=== PATIENT | male | born 1980 | race Caucasian/White ===

== ENCOUNTER 2020-01-21 09:05 | Outpatient (REF) | payer OTHER, SELFPAY ==
--- NOTE | 2020-01-21 09:13 | XR_ITS ---
EXAMINATION: XR THORACIC SPINE XR LUMBAR SPINE CLINICAL INFORMATION: Dorsalgia COMPARISON: CT 12/05/2018 TECHNIQUE: 3 views of the thoracic spine. 5 views of the lumbar spine. FINDINGS: Thoracic spine: No fracture or subluxation. Vertebral body height and alignment is maintained. Disc spaces are maintained. The paravertebral soft tissues are unremarkable. The visualized lungs are clear. Lumbar spine: No fracture or subluxation. Vertebral body heights are maintained. Mild disc space narrowing of L2-L3 with small endplate osteophytes and a small Schmorl's node present. The sacroiliac joints are symmetric. The visualized sacrum is intact. The bowel gas pattern is unremarkable. IMPRESSION: No acute abnormality of the thoracolumbar spine. Minimal spondylosis of L2-L3.
== END 2020-01-21 09:06 | disposition home or self-care (01) ==
LOC: HO.XRAY 09:05
PROVIDERS: PCP Internal Medicine; Visit Provider Internal Medicine
DX: M54.9 Dorsalgia, unspecified (principal)
CPT/HCPCS: 72072; 72110

== ENCOUNTER 2020-04-12 07:49 | Outpatient (REF) | payer OTHER, SELFPAY ==
--- NOTE | 2020-04-12 07:58 | XR_ITS ---
EXAMINATION: XR CERVICAL SPINE CLINICAL INFORMATION: Spondylosis without myelopathy or radiculopathy COMPARISON: None TECHNIQUE: 6 views of the cervical spine, inclusive of flexion and extension views, were obtained. FINDINGS: There is maintained cervical lordosis. The vertebral heights, alignment and disc heights are normal. No acute fracture, dislocation or subluxation seen. The neural foramina are patent bilaterally. The prevertebral soft tissues are normal XR/XR cervical spine min 6V IMPRESSION: Unremarkable cervical spine exam.
== END 2020-04-12 07:50 | disposition home or self-care (01) ==
LOC: HO.XRAY 07:49
PROVIDERS: PCP Internal Medicine
DX: M47.812 Spondylosis without myelopathy or radiculopathy, cervical region (principal)
CPT/HCPCS: 72052

== ENCOUNTER 2020-05-18 04:11 | Emergency (ER) | payer OTHER, SELFPAY ==
--- NOTE | ~2020-05-18 | MR_ITS ---
MR LUMBAR SPINE WITHOUT IV CONTRAST CLINICAL INFORMATION: Severe low back pain and urinary incontinence. COMPARISON: Lumbar spine radiographs 01/21/2020. TECHNIQUE: MRI of the lumbar spine was obtained using routine sequences without contrast. FINDINGS: There are 5 nonrib-bearing lumbar-type vertebral bodies. Lumbar alignment is maintained. Vertebral body heights are preserved. Small chronic inferior endplate Schmorl's noted L2. There is no bone marrow edema. There are no acute fractures. Conus terminates at the T12 level. The partially imaged bladder is distended. T12-L1: Shallow left paracentral disc protrusion mildly indents the ventral thecal sac. No central canal stenosis and no foraminal stenosis. L1-L2: Small annular disc bulge and mild bilateral facet arthropathy. No central canal stenosis and no foraminal stenosis. L2-L3: Small annular disc bulge and mild bilateral facet arthropathy. No central canal stenosis and no foraminal stenosis. L3-L4: Small annular disc bulge and mild bilateral facet arthropathy. No central canal stenosis and no foraminal stenosis. L4-L5: Diffuse annular disc bulge and mild bilateral facet arthropathy. No central canal stenosis. There is mild foraminal encroachment bilaterally. There is a right lateral annular fissure. L5-S1: Diffuse annular disc bulge and mild bilateral facet arthropathy. Epidural lipomatosis moderately effaces the thecal sac. There is mild foraminal encroachment bilaterally. MR/MR lumbar spine wo con IMPRESSION: At L5-S1, epidural lipomatosis moderately effaces the thecal sac. Mild spondylitic changes throughout the lumbar spine and lower thoracic spine. No severe central canal stenosis and no severe foraminal stenosis. Right lateral annular fissure at L4-L5. The partially imaged bladder is distended.
--- NOTE | 2020-05-18 04:15 | ED.BACK ---
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 Tried ibuprofen and baclofen without relief. MD elicited complaint: back pain Pertinent past history: prior back pain Onset (ago): day(s) (2) Timing: constant and progressively worsening Severity: severe Similar Symptoms Previously: Yes Quality: sharp Location: lumbar spine Radiation: abdomen and other (testicles) Exacerbating factors: movement, sitting upright, walking, deep breaths and coughing/sneezing Relieving factors: none Context: unknown Associated symptoms: urinary incontinence Treatments prior to arrival: NSAIDS and other medications Work related injury: No Related Data Allergies Allergy/AdvReac Type Severity Reaction Status Date / Time No Known Allergies Allergy Unverified 12/24/19 16:54 [No Known Allergies*] Review of Systems Review of Systems: Constitutional : No Weight loss, No Fever, No Chills, ENT/Mouth : No Hearing loss, No Ear Pain, No Nasal Congestion, No Sinus Pain, No Hoarseness, No sore throat, No Rhinorrhea, No Swallowing Difficulty Cardiovascular : No Chest Pain, No SOB Respiratory : No Cough, No Dyspnea Gastrointestinal : No Nausea, No Vomiting, No Diarrhea, No abdominal Pain, No Hematochezia, No Melena Genitourinary : No Dysuria, No Urinary Frequency, No Hematuria, pos Urinary Incontinence, Musculoskeletal : positive back pain Skin : No Skin Lesions, No rash Neuro : No Weakness, No Numbness, No Paresthesias, pos loss bladder control , no saddle anesthesia PMFSH Past Medical History Attestation statement: The following information was validated with the patient. Medical History Back pain Social History Social History (Updated 05/18/20 @ 04:20 by Estrella Mayorga DO) Smoking Status: Never smoker Use of substances other than those prescribed or required for medical reasons: No Advance Directives: No Advance Directives Information Provided: No Physical Exam Vital Signs: Vital Signs: Last Vital Signs Temp 98.6 F 05/18/20 04:41 Pulse 108 H 05/18/20 04:41 Resp 15 05/18/20 04:41 BP 136/85 05/18/20 04:41 Pulse Ox 98 05/18/20 04:41 Body Mass Index 38.9 Appearance: Alert. Oriented X3. anxious in pain, mild acute distress, hunched over. Eyes: Pupils equal, round and reactive to light. ENT: Pharynx normal. Neck: Normal inspection. Neck supple. CVS: Normal heart rate and rhythm. Pulses normal. Respiratory: No respiratory distress. Breath sounds normal. Abdomen: Soft and nontender. : normal sensation Rectal: normal tone Back: bilateral lumbar paraspinal ttp - moderate, + spasm, no rash Skin: Skin warm and dry. Normal skin color. Normal skin turgor. Extremities: No lower extremity edema. No calf ttp Neuro: Oriented X 3. No motor deficit. No sensory deficit. L5 5/5 bilaterally, 2+ DTR in bilateral patella and achilles - no clonus Course Course Course Narrative: PVR 77mL signed out pending MRI MDM - Back Pain/Injury MDM Narrative Medical decision making narrative: 39 yo male chronic back pain no AC therapy no IVDA, c/o severe pain that started suddenly on Saturday and has had urinary incontinence, currently he is able to control his bladder - at this time will need IV pain medications, PVR bladder scan, start on steroids and obtain MRI to r/o compressive lesion, dispo per results and findings. Lab Data Result diagrams: 05/18/20 04:30 05/18/20 04:30 Labs: Lab Results 05/18/20 05/18/20 Range/Units 04:30 04:30 WBC 9.1 (4.8-10.8) X10*3/uL RBC 4.35 L (4.60-5.80) X10*6/uL Hgb 13.1 L (14.0-18.0) g/dl Hct 38.5 L (42-52) % MCV 88.5 (80-98) fL MCH 30.1 (27.0-33.0) pg MCHC 34.0 (31.0-36.0) g/dl RDW 13.2 (11.0-16.0) % Plt Count 197 (160-400) X10*3/uL MPV 9.1 L (9.4-12.4) fL Immature Gran % (Auto) 0.2 (0.0-0.4) % Neut % (Auto) 59.2 (45-73) % Lymph % (Auto) 30.8 (20-40) % [place] % (Auto) 7.9 (2-11) % Eos % (Auto) 1.7 (0-4) % Baso % (Auto) 0.2 (0-2) % Lymph # (Auto) 2.8 (1.2-4.9) X10*3/uL [place] # (Auto) 0.7 (0.1-1.2) X10*3/uL Eos # (Auto) 0.2 (0.0-0.4) X10*3/uL Baso # (Auto) 0.0 (0.0-0.2) X10*3/uL Abs Immat Gran (auto) 0.02 (0.00-0.03) X10*3/uL Absolute Neuts (auto) 5.4 (2.0-8.3) X10*3/uL Absolute Nucleated RBC 0.000 (0.0-0.012) X10*3/uL Nucleated RBC % (auto) 0.0 (0.0-0.2) /100WBC Sodium 138 (135-145) mmol/L Potassium 4.2 (3.3-5.1) mmol/L Chloride 105 (96-108) mmol/L Carbon Dioxide 24 (22-29) mmol/L Anion Gap 13 (12-20) BUN 20 H (9-16) mg/dL Creatinine 1.14 (0.5-1.4) mg/dL Estim Creat Clear Calc 120.3 Estimated GFR > 60 Random Glucose 112 (60-115) mg/dL Calcium 8.6 (8.4-10.2) mg/dL Discharge Plan Discharge Clinical Impression: Strain of lumbar region Qualifiers: Encounter type: initial encounter Qualified Code(s): S39.012A - Strain of muscle, fascia and tendon of lower back, initial encounter
[2020-05-18] MEDS: diazePAM 5 MG TABLET PO (04:39)
[2020-05-18] MEDS: HYDROmorphone HCl 1 MG/ML SYRINGE IVPUSH ×2 (04:39→12:11)
[2020-05-18] MEDS: methylPREDNISolone Sod Succ/PF 125 MG/2 ML VIAL 60 MG IVPUSH (04:40)
[2020-05-18 04:41] VITALS: BP 136/85; PULSE 108; RESP 15; TEMP 37; O2SAT 98; BMI 38.9
[2020-05-18 04:46] LABS: MANUAL DIFF FLAG NO
[2020-05-18 04:47] LABS: Basophils Percent Auto 0.2 % (0-2); Eosinophils Absolute Auto 0.2 X10*3/uL (0.0-0.4); Eosinophils Percent Auto 1.7 % (0-4); Hematocrit 38.5 % (42-52); Hemoglobin 13.1 g/dl (14.0-18.0); Imm Gran Abs Auto 0.02 X10*3/uL (0.00-0.03); Imm Gran Pct Auto 0.2 % (0.0-0.4); Lymphocytes Absolute Auto 2.8 X10*3/uL (1.2-4.9); Lymphocytes Percent Auto 30.8 % (20-40); Mean Corpuscular Hemoglobin 30.1 pg (27.0-33.0); Mean Corpuscular Volume 88.5 fL (80-98); Mean Platelet Volume 9.1 fL (9.4-12.4); Monocytes Absolute Auto 0.7 X10*3/uL (0.1-1.2); Monocytes Percent Auto 7.9 % (2-11); Neutrophils Absolute Auto 5.4 X10*3/uL (2.0-8.3); Neutrophils Percent Auto 59.2 % (45-73); Platelet Count 197 X10*3/uL (160-400); Red Blood Count 4.35 X10*6/uL (4.60-5.80); Red Cell Distribution Width 13.2 % (11.0-16.0); White Blood Count 9.1 X10*3/uL (4.8-10.8)
[2020-05-18 05:09] LABS: Anion Gap 13 (12-20); Blood Urea Nitrogen 20 mg/dL (9-16); Calcium 8.6 mg/dL (8.4-10.2); Carbon Dioxide 24 mmol/L (22-29); Chloride 105 mmol/L (96-108); Creatinine Clr Calc Pharmacy 120.3; Estimated Glomerular Filt Rate > 60; Glucose Random 112 mg/dL (60-115); Potassium 4.2 mmol/L (3.3-5.1); Sodium 138 mmol/L (135-145)
[2020-05-18 05:32] LABS: COVID-19 Test Negative (Negative)
[2020-05-18 06:00] VITALS: BP 116/80; PULSE 90; RESP 15; O2SAT 98
[2020-05-18 08:06] VITALS: BP 101/68; PULSE 88; RESP 18; TEMP 36.6; O2SAT 97
--- NOTE | 2020-05-18 08:27 | PC.NURSE ---
Pt off floor to MRI
--- NOTE | 2020-05-18 10:51 | PC.NURSE ---
10:49AM PT TX LINE CALLED @ DR GARCIA REQUEST OXANA ANSWERS, TAKES PT INFO, CALL BACK NUMBER AND ASKS TO SPEAK WITH DR RADHA GARCIA TAKES OVER CALL RIGHT AWAY
--- NOTE | 2020-05-18 11:18 | PC.NURSE ---
11:09AM RETURN CALL FROM OXANA FROM [facility] PT TX LINE ASKS TO SPEAK WITH DR RADHA GARCIA TAKES OVER CALL
--- NOTE | 2020-05-18 11:33 | PC.NURSE ---
11:31AM RETURN CALL FROM [facility] PT PLACEMENT FOR DR RADHA GARCIA TAKES OVER CALL RIGHT AWAY
--- NOTE | 2020-05-18 12:11 | PC.NURSE ---
11:47AM RETURN CALL FROM [facility] PT PLACEMENT WITH ROOM ASSIGNMENT LOZANO ROOM 50A RN TO RN [phone]
--- NOTE | 2020-05-18 12:23 | PC.NURSE ---
12:22PM CALL PLACED TO [facility] PT TX LINE FOR ACCEPTING MD NAME ACCEPTING MD WILL BE: DR ORO
== END 2020-05-18 13:56 | disposition short-term general hospital (02) ==
PROVIDERS: Emergency Medicine; Emergency Provider Emergency Medicine Emergency Medical Services
DX: S39.012A Strain of muscle, fascia and tendon of lower back, initial encounter (principal); X58.XXXA Exposure to other specified factors, initial encounter; M54.16 Radiculopathy, lumbar region; G95.89 Other specified diseases of spinal cord; E88.2 Lipomatosis, not elsewhere classified; Z20.822 Contact with and (suspected) exposure to COVID-19; Y93.9 Activity, unspecified; Y92.9 Unspecified place or not applicable; Y99.9 Unspecified external cause status
CPT/HCPCS: 36415; 72148; 80048; 85025; 87635; 96374; 96375; 96376; 99285; J1170; J2930

== ENCOUNTER → 2022-01-04 15:23 | Outpatient (BNVA) | payer OTHER, SELFPAY | PROVIDERS: PCP Internal Medicine; Visit Provider Surgery | DX: L98.9 Disorder of the skin and subcutaneous tissue, unspecified (principal) | CPT/HCPCS: 99202 ==

== ENCOUNTER → 2022-02-08 14:49 | Outpatient (BNVA) | payer OTHER, SELFPAY | PROVIDERS: PCP Internal Medicine; Visit Provider Nurse Practitioner Family | DX: G47.33 Obstructive sleep apnea (adult) (pediatric) (principal) | CPT/HCPCS: 99202 ==

== ENCOUNTER 2022-02-12 15:11 | Outpatient (REF) | payer OTHER, SELFPAY | END 2022-02-12 15:12 | disposition home or self-care (01) | LOC: HO.LNP 15:11 | PROVIDERS: PCP Internal Medicine; Visit Provider Surgery | DX: L98.9 Disorder of the skin and subcutaneous tissue, unspecified (principal) | CPT/HCPCS: 11401; 88305; 88313 ==

== ENCOUNTER 2022-10-16 14:46 | Outpatient (REF) | payer OTHER, SELFPAY ==
--- NOTE | ~2022-10-16 | XR_ITS ---
Examination: X-ray hand, left INDICATION: Pain, swelling, redness COMPARISON: 02/22/2014 TECHNIQUE: 4 views of the left hand FINDINGS: No fracture or dislocation. Alignment is normal. Joint spaces are fairly well-preserved. No erosions. Soft tissues unremarkable. No foreign bodies. XR/XR wrist LT w scaphoid IMPRESSION: Unremarkable left hand
== END 2022-10-16 14:47 | disposition home or self-care (01) ==
LOC: HO.HHCX 14:46
PROVIDERS: Visit Provider Family Medicine
DX: M25.532 Pain in left wrist (principal); M25.432 Effusion, left wrist
CPT/HCPCS: 73110

== ENCOUNTER 2022-10-16 14:57 | Outpatient (REF) | payer OTHER, SELFPAY ==
[2022-10-16 16:29] LABS: Basophils Percent Auto 0.5 % (0-2); Eosinophils Absolute Auto 0.1 X10*3/uL (0.0-0.4); Eosinophils Percent Auto 1.8 % (0-4); Hematocrit 41.4 % (42.0-52.0); Hemoglobin 14.1 g/dl (14.0-18.0); Imm Gran Abs Auto 0.01 X10*3/uL (0.00-0.03); Imm Gran Pct Auto 0.2 % (0.0-0.4); Lymphocytes Absolute Auto 1.7 X10*3/uL (1.2-4.9); Lymphocytes Percent Auto 25.4 % (20-40); MANUAL DIFF FLAG NO; Mean Corpuscular HGB Conc 34.1 g/dl (31.0-36.0); Mean Corpuscular Hemoglobin 29.6 pg (27.0-33.0); Mean Platelet Volume 9.9 fL (9.4-12.4); Monocytes Absolute Auto 0.7 X10*3/uL (0.1-1.2); Monocytes Percent Auto 10.3 % (2-11); Neutrophils Absolute Auto 4.1 x10*3/uL (2.0-8.3); Neutrophils Percent Auto 61.8 % (45-73); Platelet Count 143 X10*3/uL (160-400); Red Blood Count 4.76 X10*6/uL (4.60-5.80); Red Cell Distribution Width 12.5 % (11.0-16.0); White Blood Count 6.6 X10*3/uL (4.8-10.8)
[2022-10-16 17:26] LABS: Erythrocyte Sedimentation Rate 18 MM/HR (0-15)
[2022-10-16 18:23] LABS: Anion Gap 13 (12-20); Blood Urea Nitrogen 11 mg/dL (9-16); C Reactive Protein 0.69 mg/dL (< or = 0.50); Calcium 9.3 mg/dL (8.4-10.2); Carbon Dioxide 22 mmol/L (22-29); Chloride 105 mmol/L (96-108); Estimated Glomerular Filt Rate > 60; Glucose Random 90 mg/dL (60-115); Potassium 3.7 mmol/L (3.3-5.1); Rheumatoid Factor < 13.0 IU/mL (<15.0); Sodium 136 mmol/L (135-145); Uric Acid 7.2 mg/dL (3.4-7.0)
[2022-10-22 15:48] LABS: Cyclic Citrullinated Peptide <16 UNITS
[2022-10-24 10:44] LABS: Anti Nuclear Antibody Screen NEGATIVE (NEGATIVE)
== END 2022-10-16 14:58 | disposition home or self-care (01) ==
LOC: HO.HHCL 14:57
PROVIDERS: Visit Provider Family Medicine
DX: M25.532 Pain in left wrist (principal); M25.432 Effusion, left wrist; R60.0 Localized edema
CPT/HCPCS: 36415; 80048; 84550; 85025; 85652; 86038; 86140; 86200; 86431

== ENCOUNTER 2022-12-06 07:30 | Outpatient (REF) | payer SELFPAY ==
--- NOTE | 2022-12-06 | EMG_ITS ---
Left median and ulnar motor and sensory studies were performed. Left radial sensory study was performed and left median and lateral antecubital brachial sensory studies were performed. Needle examination was performed. IMPRESSION: Mild left median neuropathy across carpal tunnel. Otherwise, no significant abnormality noted on this study of left upper extremity. MD SONYA Gilbert/KD / [id number]
== END 2022-12-06 07:31 | disposition home or self-care (01) ==
LOC: HO.NEURO 07:30
PROVIDERS: PCP Registered Nurse; Visit Provider Registered Nurse
DX: R20.0 Anesthesia of skin (principal); R20.2 Paresthesia of skin
CPT/HCPCS: 95886; 95910

== ENCOUNTER 2022-12-19 13:37 | Outpatient (AMB) | payer SELFPAY ==
--- NOTE | 2022-12-19 14:12 | A.OFFVIS_ITS ---
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 States he is having cramping, severe swelling in his wrist for the last 10 yrs ago and was diagnose 2 yrs ago with arthritis in all his joint. Seen in [facility] where xrays were taken. States he was told he could have gout or tendonitis. Since then he has not been able to sleep due to increase pain. EMG done for left hand. Hx of back pain. 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 Back in October he had sudden onset of pain and swelling in the dorsum of the left wrist. They thought he might have gout verses extensor tendinitis. This went on to improve and is no longer particularly painful. He also complains of numbness and tingling in the fingers of his left hand. He says it is intermittent and perhaps only 2-3 times per week. It mostly involves the thumb index and middle fingers. He also gets pain that radiates from his neck all the way down his arm. He reports that if he turns his neck towards his left arm that he gets increased pain going down his arm. He said that he is already being seen by someone for his C-spine and his lower back issues. He worked at [employer] but has been out of work for the last 3 months.. [facility] Medical History (Updated 12/19/22 @ 15:24 by Zenaida Stacy MD) Skin lesion of right arm Back pain Family History Mother Advanced dementia Osteoarthritis (arthritis due to wear and tear of joints) Father Diabetes Alzheimer disease Social History Alcohol intake: never Patient Tobacco Use Status: Never used Tobacco Review of Systems Const All systems reviewed & are unremarkable except as noted in HPI and below Physical Exam Vital Signs: BMI result Body Mass Index 38.1 Const General: cooperative, healthy appearing and no acute distress Orientation/consciousness: patient oriented x3 HEENT Head: Yes normocephalic and Yes atraumatic Eyes EOM: EOMs intact bilaterally Resp Effort & Inspection: normal respiratory effort and able to speak in complete sentences Cardio Jugular venous distension: no JVD Skin General skin exam: turgor normal, ecchymosis (No) and erythema (No) Rashes: no rashes Trauma: no lacerations or abrasions Neuro Other: Vascular: Cap refill brisk General: patient oriented x3 Extrem Other: The patient was alert oriented and in no acute distress. Left upper extremity exam: Median ulnar radial nerve motor and sensory were all grossly intact with good sensation to all digits today. No thenar or intrinsic wasting. Good finger cross and good APB muscle belly firing He can make a fist and extend all his digits. No pain when he makes a fist or extend all of his Digits. No locking or catching. Regarding his left wrist, he no longer has any visible swelling or warmth in the left wrist. He actually has very good range of motion with nearly symmetrical prono- supination with only mild discomfort with full pronation or full supination. He does have some discomfort with full wrist flexion and wrist extension. And is lacking about 20 degrees of each compared to the opposite side. I showed him some exercises and encouraged him to work on wrist range of motion. Radiographs three views of the left wrist from 10/16/2022 were reviewed by me today in clinic. They show no fractures or dislocations. I do not see any appreciable arthritic changes. No evidence of ligamentous instability. 12/06/22: EMG/ NCV of left hand. By Dr. Duggan. Result was reviewed by Dr. Zenaida Stacy. IMPRESSION: Mild left median neuropathy across carpal tunnel. Otherwise, no significant abnormality noted on this study of left upper extremity. Psych Appearance: grossly normal Affect: normal affect Attitude: cooperative Assessment & Plan Assessment & Plan (1) Carpal tunnel syndrome of left wrist: Code(s): G56.02 - Carpal tunnel syndrome, left upper limb Plan Assessment and plan: 1. Left carpal tunnel syndrome, mild At present his symptoms are only occurring about 2-3 times per week. I educated him about carpal tunnel syndrome We discussed operative and non operative treatment options. I am not recommending surgery at this time. I did caution him against waiting too long. He knows that when he starts getting symptoms that are just about every day or bothering him and keeping him from sleeping then he should contact us again to be evaluated. 2. Left dorsal wrist swelling and pain that occurred in about October of 2022 At this point this condition appears to have fully resolved. I agree that this could very well have been gout or and extensor tenosynovitis. I educated his him some about these conditions. If he does have gout he would likely need to talk to his primary care provider about managing this with diet and medications. Again this is resolved and there is no intervention indicated. 3. He has some mild stiffness in his left wrist. I showed him some exercises to work on wrist range of motion. It does not sound like he was interested in OT hand therapy right now. If this should change she all ES to do is contact our clinic and I will put in an order. I do not have any indication to keep him out of work at this time. He will follow-up with me p.r.n.. He will follow-up with whomever he is seeing for his C-spine and low back pain issues. Scribed for Dr. Zenaida Stacy by Reji Gabriel, medical billing clerk, on 12/19/2022. I, Dr. Zenaida Stacy, have personally reviewed and agree with the information entered by the scribe. Coding Level of Care Code New Pt Level 3 (02343) Diagnoses Carpal tunnel syndrome of left wrist G56.02
[2022-12-19 14:21] VITALS: BMI 38.1
== END 2022-12-19 15:13 | disposition home or self-care (01) ==
PROVIDERS: PCP Registered Nurse; Visit Provider Orthopaedic Surgery
DX: G56.02 Carpal tunnel syndrome, left upper limb (principal)
CPT/HCPCS: 99203

== ENCOUNTER → 2022-12-19 13:37 | Outpatient (BNVA) | payer OTHER, SELFPAY | PROVIDERS: PCP Registered Nurse; Visit Provider Orthopaedic Surgery ==

== ENCOUNTER 2023-01-29 11:18 | Outpatient (REF) | payer OTHER, SELFPAY ==
--- NOTE | ~2023-01-29 | XR_ITS ---
EXAMINATION: XR SHOULDER, LEFT CLINICAL INFORMATION: Right shoulder pain, chronic, 3 months COMPARISON: 07/24/2017 TECHNIQUE: 5 views of the left shoulder. FINDINGS: Mild degenerative changes with hypertrophic change in the acromioclavicular joint. Glenohumeral alignment preserved. Faint soft tissue calcifications are again demonstrated at the superolateral aspect of the humeral head. XR/XR shoulder LT min 2V IMPRESSION: Faint soft tissue calcifications are again demonstrated at the superolateral aspect of the humeral head.
[2023-01-29 13:29] LABS: Appearance Urine Turbid; Color Urine Dark Yellow; Glucose Urine UA Negative (Negative); Leukocyte Esterase Urine Trace (Negative); Nitrite Urine Negative (Negative); UMIC TRIGGER UACC YES; Urine Blood Small (1+) (Negative); Urine Ketones Negative (Negative); Urine Protein Negative (Neg-Trace)
[2023-01-29 13:48] LABS: Bacteria Urine None Seen (None Seen); Hyaline Casts Urine 0-2 /LPF (0-2); Squamous Epithelial Cell Urine 0-2 /HPF (0-2); WBC Urine 0-5 /HPF (0-5)
[2023-01-29 14:19] LABS: Anion Gap 13 (12-20); Blood Urea Nitrogen 9 mg/dL (9-16); Calcium 9.2 mg/dL (8.4-10.2); Carbon Dioxide 26 mmol/L (22-29); Chloride 104 mmol/L (96-108); Cholesterol 211 mg/dL (<200); Estimated Glomerular Filt Rate > 60; Glucose Random 97 mg/dL (60-115); HDL Cholesterol 39 mg/dL (>40); LDL Cholesterol Calculated 145 mg/dL (<100); Potassium 4.2 mmol/L (3.3-5.1); Sodium 139 mmol/L (135-145); Triglycerides 135 mg/dL (<150)
[2023-01-29 14:21] LABS: Estimated Average Glucose 94 mg/dL; Hemoglobin A1c % 4.9 % (<6.0)
== END 2023-01-29 11:19 | disposition home or self-care (01) ==
LOC: HO.HHCL 11:18
PROVIDERS: Visit Provider Registered Nurse
DX: R80.9 Proteinuria, unspecified (principal); E66.01 Morbid (severe) obesity due to excess calories; Z68.41 Body mass index [BMI] 40.0-44.9, adult; Z13.89 Encounter for screening for other disorder
CPT/HCPCS: 36415; 73030; 80048; 80061; 81001; 83036

== ENCOUNTER 2023-02-12 08:42 | Outpatient (REF) | payer MEDICAID, SELFPAY ==
[2023-02-12 11:27] LABS: Appearance Urine Cloudy; Color Urine Dark Yellow; Glucose Urine UA Negative (Negative); Leukocyte Esterase Urine Small (1+) (Negative); Nitrite Urine Negative (Negative); PH 5.5 (5.0-9.0); Specific Gravity - Urine >= 1.030 (1.005-1.025); UMIC TRIGGER UACC YES; Urine Blood Small (1+) (Negative); Urine Ketones Trace mg/dL (Negative); Urine Protein 30 (1+) mg/dL (Neg-Trace)
[2023-02-12 11:41] LABS: Bacteria Urine None Seen (None Seen); Calcium Oxalate Crystals Urine Present; Granular Casts Urine Present; Squamous Epithelial Cell Urine 0-2 /HPF (0-2); UACC Culture Trigger YES
== END 2023-02-12 08:43 | disposition home or self-care (01) ==
LOC: HO.HHCL 08:42
PROVIDERS: Visit Provider Registered Nurse
DX: R80.9 Proteinuria, unspecified (principal)
CPT/HCPCS: 81001; 87086

== ENCOUNTER 2024-01-08 14:49 | Outpatient (REF) | payer MEDICAID, SELFPAY ==
[2024-01-08 16:17] LABS: Appearance Urine Clear; Color Urine Dark Yellow; Glucose Urine UA Negative (Negative); Leukocyte Esterase Urine Trace (Negative); Nitrite Urine Negative (Negative); PH 6.5 (5.0-9.0); UMIC TRIGGER UACC YES; Urine Blood Small (1+) (Negative); Urine Ketones Negative (Negative); Urine Protein Trace mg/dL (Neg-Trace)
[2024-01-08 16:22] LABS: Bacteria Urine None Seen (None Seen); Hyaline Casts Urine 0-2 /LPF (0-2); Squamous Epithelial Cell Urine 0-2 /HPF (0-2); WBC Urine 0-5 /HPF (0-5)
[2024-01-08 16:34] LABS: Alanine Aminotransferase 39 U/L (0-40); Albumin Level 4.3 g/dL (3.5-5.0); Alkaline Phosphatase 92 U/L (39-117); Anion Gap 12 (12-20); Aspartate Amino Transferase 33 U/L (5-37); Bilirubin Total 1.3 mg/dL (0.0-1.0); Blood Urea Nitrogen 13 mg/dL (9-16); Carbon Dioxide 26 mmol/L (22-29); Chloride 105 mmol/L (96-108); Cholesterol 192 mg/dL (<200); Estimated Glomerular Filt Rate > 60; Glucose Random 101 mg/dL (60-115); HDL Cholesterol 42 mg/dL (>40); LDL Cholesterol Calculated 134 mg/dL (<100); Sodium 139 mmol/L (135-145); Total Protein 7.8 g/dL (6.5-8.0); Triglycerides 83 mg/dL (<150)
[2024-01-08 16:42] LABS: Estimated Average Glucose 103 mg/dL; Hemoglobin A1C 112.9728 umol/L; Hemoglobin A1c % 5.2 % (<6.0); Total Hemoglobin (HGBA1C) 3376.8497 umol/L
[2024-01-09 04:21] LABS: CT PCR NOT DETECTED (Not Detect.); NG PCR NOT DETECTED (Not Detect.)
== END 2024-01-08 14:50 | disposition home or self-care (01) ==
LOC: HO.HHCL 14:49
PROVIDERS: Visit Provider Registered Nurse
DX: E66.812 Obesity, class 2 (principal); E66.01 Morbid (severe) obesity due to excess calories; Z68.39 Body mass index [BMI] 39.0-39.9, adult; R30.0 Dysuria
CPT/HCPCS: 36415; 80053; 80061; 81001; 83036; 87491; 87591

== ENCOUNTER 2024-05-18 09:35 | Outpatient (REF) | payer MEDICAID, SELFPAY ==
--- OUTSIDE RECORDS SUMMARY | 2024-05-18 10:18 | XMS_ITS | Encounter Summary ---
Author Organization [employer] Address [address] [facility] [address] [place] [address] Care Team Providers Care Sushi Chef Name Role Phone Dylan Lali COKE LOADER Primary Care Provider [phone] Encounter Details Date Type Department Care Team (Late st Contact Info) Description 08/03/2022 Orders Only [facility] [address] [place] [address] Radha Whitney LPN Social History Tobacco Use Types Packs/Day Years Used Date Smoking Tobacco: Never Smokeless Tobacco: Never Alcohol Use Standard Drinks/Week Comments Never 0 (1 standard drink = 0.6 oz pur e alcohol) Depression Answer Date Recorded Patient Health Questionnaire-9 Score 0 08/07/2022 Depression Answer Date Recorded Patient Health Questionnaire-2 Score 0 08/07/2022 Sex and Gender Information Value Date Recorded Sex Assigned at Male 02/05/2022 10:16 AM EDT Legal Sex Male 10:16 AM EDT Gender Identity Male 02/05/2022 10:16 AM EDT Sexual Orientation Straight 02/05/2022 10 :16 AM EDT COVID-19 Exposure Response Date Recorded In the last 10 days, have yo u been in contact with someone who was confirmed or suspected to have Coronavirus/COVID-19? No / Unsure 08/03/2022 1:54 PM EDT documented as of this encounter Plan of Treatment Not on file documented as of this encounter Procedures Procedure Name Priority Date/Time Associated Diagnosis Comments CYCLIC CITRULLINATED PEPTIDE (CCP) AB (IGG) Routine 10/16/2022 3:04 PM EDT RHEUMATOID FACTOR Routine 10/16/2022 3:0 4 PM EDT C-REACTIVE PROTEIN Routine 10/16/2022 3: 04 PM EDT URIC ACID Routine 10/16/2022 3:04 PM EDT BASIC METABOLIC PANEL Routine 10/16/2022 3:04 PM EDT CBC WITH AUTO DIFFERENTIAL Routine 10/16/2022 2:58 PM EDT SED RATE BY MODIFIED WESTERGREN Routine 10/16/2022 12:00 AM EDT documented in this encounter Results * Cyclic Citrullinated Peptide (CCP) Antibody (IgG) (10/16/2022 3:04 PM EDT) Cyclic Citrullinated Peptide <16 UNITS [facility] Comment:Reference RangeNegat eduardo: <20Weak Positive: 20-39Moderate Positive: 40-59Strong Positive: >59THIS TEST WAS PERFORMED AT:[employer] [address] [id number] PARSONS MD 10/16/2022 3:04 PM EDT 10/16/2022 5:40 PM EDT [facility] External Provider LAB BLO OD ORDERABLES Final Result [facility] [address] [place] [phone] * (ABNORMAL) C-reactive Protein (10/16/2022 3:04 PM EDT) C Reactive Protein 0.69(H) < or = 0.50 mg/dL [facility] 10/16/2022 3:04 PM EDT 10/16/2022 5:40 PM EDT [facility] External Provider LAB BLO OD ORDERABLES Final Result Performing Organization Address City/[facility]/ZIP Co de Phone Number [facility] [address] [place] [address] [phone] * (ABNORMAL) Uric acid (10/16/2022 3:04 PM EDT) Uric Acid 7.2(H) 3.4 - 7.0 mg/dL [facility] 10/16/2022 3:04 PM EDT 10/16/2022 5:40 PM EDT [facility] External Provider LAB BLO OD ORDERABLES Final Result Performing Organization Address [facility] Co de Phone Number [facility] [address] [place] [address] [phone] * Basic Metabolic Panel (10/16/2022 3:04 PM EDT) Sodium 136 135 - 145 mmol/L [facility] Potassium 3.7 3.3 - 5.1 mmol/L [facility] Chloride 105 96 - 108 mmol/L [facility] Carbon Dioxide 22 22 - 29 mmol/L [facility] Anion Gap 13 12 - 20 [facility] Urea Nitrogen (BUN) 11 9 - 16 mg/dL [facility] Creatinine, Serum 0.93 0.5 - 1.4 mg/dL [facility] Estimated Glomerular Filt Rate >60 [facility] Comment:NOTE: For -Am erican individuals, multiply the result by 1.210.Chronic Kidney Disease: Estimated GFR < 60 mL/min/1.94g8Fsmkzl Kidney Disease: Estimated GFR < 15 mL/min/1.73m2 Glucose 90 60 - 115 mg/dL [facility] Calcium 9.3 8.4 - 10.2 mg/dL [facility] 10/16/2022 3:04 PM EDT 10/16/2022 5:40 PM EDT [facility] External Provider LAB BLO OD ORDERABLES Final Result Performing Organization Address City/[facility]/ZIP Co de Phone Number [facility] [address] [place] [address] [phone] * Rheumatoid Factor (10/16/2022 3:04 PM EDT) [facility] Rheumatoid Factor <13.0 <15.0 IU/mL [facility] 10/16/2022 3:04 PM EDT 10/16/2022 5:40 PM EDT [facility] External Provider LAB BLO OD ORDERABLES Final Result Performing Organization Address [facility] Co de Phone Number [facility] [address] [place] [phone] * (ABNORMAL) CBC auto differential (10/16/2022 2:58 PM EDT) [facility] White Blood Count 6.6 4.8 - 10.8 X10*3/uL [facility] Red Blood Count 4.76 4.60 - 5.80 X10*6/uL [facility] Hemoglobin 14.1 14.0 - 18.0 g/dl [facility] Hematocrit 41.4(L) 42.0 - 52.0 % [facility] Mean Corpuscular Volume 87.0 80.0 - 98.0 fL [facility] Mean Corpuscular Hemoglobin 29.6 27.0 - 33.0 pg [facility] Mean Corpuscular HGB Conc 34.1 31.0 - 36.0 g/dl [facility] Red Cell Distribution Width 12.5 11.0 - 16.0 % [facility] Platelet Count 143(L) 160 - 400 X10*3/uL [facility] Mean Platelet Volume 9.9 9.4 - 12.4 fL [facility] Neutrophils Percent Auto 61.8 45 - 73 % [facility] Imm Gran Pct Auto 0.2 0.0 - 0.4 % [facility] Lymphocytes Percent Auto 25.4 20 - 40 % [facility] Monocytes Percent Auto 10.3 2 - 11 % [facility] Eosinophils Percent Auto 1.8 0 - 4 % [facility] Basophils Percent Auto 0.5 0 - 2 % [facility] NRBC Pct Auto 0.0 0.0 - 0.2 /100WBC [facility] Neutrophils Absolute Auto 4.1 2.0 - 8.3 x10*3/uL [facility] Imm Gran Abs Auto 0.01 0.00 - 0.03 X10*3/uL [facility] Lymphocytes Absolute Auto 1.7 1.2 - 4.9 X10*3/uL [facility] Monocytes Absolute Auto 0.7 0.1 - 1.2 X10*3/uL [facility] Eosinophils Absolute Auto 0.1 0.0 - 0.4 X10*3/uL [facility] Basophils Absolute Auto 0.0 0.0 - 0.2 X10*3/uL [facility] NRBC Abs Auto 0.000 0.0 - 0.012 X10*3/uL [facility] 10/16/2022 2:58 PM EDT 10/16/2022 4:54 PM EDT [facility] External Provider LAB BLO OD ORDERABLES Final Result [facility] [address] [place] [address] [phone] * (ABNORMAL) Sed Rate by Modified Sangeetaren (10/16/2022 12:00 AM EDT) Erythrocyte Sedimentation Rate 18(H) 0 - 15 MM/HR [facility] Comment:Patients with polycy themia and many hemoglobin abnormalitiesmay have depressed sed rates whereas patients with anemiamay have elevated sed rates. 10/16/2022 10/16/2022 4:5 3 PM EDT us [facility] External Provider LAB BLO OD ORDERABLES Final Result [facility] [address] [place] [phone] documented in this encounter Visit Diagnoses Not on filedocumented in this encounter Additional Health Concerns Assessment Noted Time PHQ-9 Depression Total Score: 0 07/11/19 23 10:16 AM EDT documented as of this encounter Care Teams Sushi Chef Relationship Specialty Start Date End Date Lali Richardson FNP [address] [place] [phone] PCP - General Family Medicine 06/12/22 documented as of this encounter
--- OUTSIDE RECORDS SUMMARY | 2024-05-18 10:18 | XMS_ITS | Encounter Summary ---
Author Organization [employer] Address [address] [facility] [address] [place] [address] Care Team Providers Care Supervisor [employer] Name Role Phone [facility] Primary Care Provider [phone] Reason for Visit * Reason Onset Date Comments Results 07/03/2023 Encounter Details Date Type Department Care Team ([facility] st Contact Info) Description 07/03/2023 Telephone [facility] MEDICINE [address] [place], [place] [phone] [facility] [address] [place] [address] Results Social History Tobacco Use Types Packs/Day Years Used Date Smoking Tobacco: Never Smokeless Tobacco: Never Alcohol Use Standard Drinks/Week Comments Never 0 (1 standard drink = 0.6 oz pur e alcohol) Alcohol Answer Date Recorded Frequency of Alcohol Consumption Not on file 06/05/2023 Average Number of Drinks Not on file 024 Frequency of Binge Drinking Not on file 05/10 Score 0 06/05/2023 Depression Answer Date Recorded Patient Health Questionnaire-9 Score 0 06/05/2023 Patient Health Questionnaire-9 Score 0 06/05/2023 Last PHQ-9: Questionnaire Data Not on file 0 06/05/2023 Housing Stability Answer Date Recorded What is your housing situation today? I have ananth pearce 01/24/[address] you li ve. Do you have problems with any of the following? None of the above 01/24/2023 Food Insecurity Answer Date Recorded Within the past 12 months, y ou worried that your food would run out before you got money to buy more: Never True 01/24/2023 Within the past 12 months,th e food you bought just didn't last and you didn't have enough money to get more: Never True Transportation Answer Date Recorded In the past 12 months, has l ack of transportation kept you from medical appts, meetings, work or from getting things needed for daily living? No 01/24/2023 Utilities Answer Date Recorded In the past 12 months, has t he electric, gas, oil or water company threatened to shut off services in your home? No 01/24/2023 Depression Answer Date Recorded Patient Health Questionnaire-2 Score 0 06/05/2023 Sex and Gender Information Value Date Recorded Sex Assigned at Male 02/05/2022 10:16 AM EDT Legal Sex Male 10:16 AM EDT Gender Identity Male 02/05/2022 10:16 AM EDT Sexual Orientation Straight 02/05/2022 10 :16 AM EDT documented as of this encounter Miscellaneous Notes * Telephone Encounter - Charleen Parker - 07/03/2023 10:59 AM EDT TC from pt requesting call back regarding Results. Type of results: Xray lumbar spine Date when done: 06/05 Facility: [facility] Please contact pt at [phone] ([place]) documented in this encounter Plan of Treatment Not on file documented as of this encounter Visit Diagnoses Not on filedocumented in this encounter Additional Health Concerns Assessment Noted Time PHQ-9 Depression Total Score: 0 06/05/19 24 11:10 AM EST documented as of this encounter Care Teams Supervisor Core Shop Relationship Specialty Start Date End Date Lali Richardson FNP [address] [place] [address] PCP - General Family Medicine 06/12/22 documented as of this encounter
--- OUTSIDE RECORDS SUMMARY | 2024-05-18 10:18 | XMS_ITS | Clinical Summary ---
Author Organization [employer] Address [address] [place] [address] 7t [place] [address] Care Team Providers Care Jazz Singer Name Role Phone Lali Richardson [facility] Primary Care Provider Allergies No known active allergies Medications celecoxib (CeleBREX) 200 MG capsule TAKE 1 CAPSULE BY MOUTH TWICE DAILY NEEDED MILD PAIN. Do not take ibuprofen or naproxen while taking this medication. 30 capsule 1 02/06/20 23 Active Eye Itch Relief 0.035 % solution APPLY 1 DROP IN EACH EYE TWICE DAILY 01/29/20 23 Active cholecalcifero l (Vitamin D-3) 25 MCG (1000 UT) tablet Take 1 tablet (25 mcg) by mouth Once per day. 30 tablet 11 02/19/20 24 025 Active fluocinolone (DermOtic) 0.01 % ear dropsIndicatio ns:Eczema of external ear, bilateral Administer 5 drops into each ear 2 times daily. 20 mL 1 05/18/19 25 Active amitriptyline (Elavil) 10 MG tabletIndicati ons:Chronic bilateral low back pain with bilateral sciatica Take 1 tablet (10 mg) by mouth at bedtime. 30 tablet 1 01/29/20 23 025 Discontinued gabapentin (Neurontin) 100 MG capsuleIndicat ions:Chronic bilateral low back pain with bilateral sciatica Take 1 capsule (100 mg) by mouth every 8 (eight) hours. Okay to increase to 2 capsules three times daily if needed for pain relief 270 capsule 11 01/15/20 24 025 Discontinued Active Problems Problem Noted Date Diagnosed Date Neck pain 03/13/2023 Assessment & Plan (03/13/2023 11:14 AM EST): Trigger point injections as described above Pain and swelling of left wrist 10/16/2022 Assessment & Plan (10/16/2022 3:21 PM EDT): Differential Dx : Gout - wrist seems inflamed - will check lab and XR -Depending on result on XR and Lab; will refer to Orthopedics OR Rheumatology - apply ice to area - Rx Celebrex, for pain - advised not to take Ibuprofen/Motrin while taking celebrex Chronic bilateral low back pain with sciatica Overview (03/09/2023): ?? Chronic LBP ?? MRI 2020 shows L5-S1 epidural lipomatosis. ?? Lumbar radiculopathy ?? Previously tried ISABEL, and PT without sx improvement ?? Baclofen, ibuprofen, tylenol ?? Previously declines referral to physical therapy Assessment & Plan (06/05/2023 1:08 PM EST): Worsening of radicular sx Will update lumbar MRI and follow up pending results Trial gabapentin 100mg (1-3 tablets up to 3x daily). Reviewed administration, risks, side effects Pt desires to be pain free. Requesting surgery. Reports previously told he was not a surgical candidate for removal of epidural lipomatosis. I discussed with patient that chronic pain mngmt often requires a multi modal collaborative approach--pain free is unrealistic. Patient will think about functional goals he would like to achieve. Discussed that it is unlikely that low back is primary pain generator as he c/o widespread pain in neck/shoulders/hands as well Patient verbalizes understanding and agrees to plan Assessment & Plan (03/09/2023 1:53 PM EST): ?? Continue evening amitriptyline as rx'd ?? Encouraged daily stretching and ROM Assessment & Plan (02/05/2023 9:51 AM EDT): Written consent obtained for ear acupuncture. Ears prepped with alcohol pad. Five ear points needled bilaterally: Sympathetic, Victoria Men, Kidney, Liver and Lung. Treatment duration: 25 minutes. Good hemostasis. Patient tolerated well and reports improvement in pain and relaxation. Follow up weekly for repeat acupuncture treatments as desired. Assessment & Plan (02/04/2023 2:55 PM EDT): ?? STOP duloxetine (pt self discontinued) ?? Continue acupuncture ?? Pt agrees to trial low dose amitriptyline which may also help patient with sleep issues s/t pain ?? Continue ibuprofen/tylneol PRN Mixed hyperlipidemia 08/14/2022 Overview (08/14/2022): ?? Rosuvastatin 5mg daily ?? 07/2022 ASCVD 2.0% Obstructive sleep apnea 08/14/2022 Overview (06/04/2023): 2019 sleep study with severe sleep apnea Pt reports repeat study done 02/2022 records not in chart Does not currently have CPAP Referred to sleep medicine Assessment & Plan (06/05/2023 1:08 PM EST): Resubmit referral to [facility] sleep medicine Will request most recent sleep study records and pending receipt initiate CPAP order Assessment & Plan (03/09/2023 1:53 PM EST): ?? DME CPAP order pending ?? Will also refer to sleep medicine for ongoing mngmt Healthcare maintenance 08/14/2022 Overview (08/14/2022): C-Scope: Neg family hx. Routine PSA: Neg family hx. Routine HCV Screen: Neg 07/2022 HIV Screen: Neg 07/2022 Vision Exam: 01/2022, outside facility Vitamin D deficiency 05/03/2014 Migraine headache 04/08/1959 Obesity 04/08/1959 Resolved Problems Problem Noted Date Diagnosed Date Resolved Date Contusion of right ankle 09/05/201712/2022 Contusion of thigh 09/05/2017 3 Encounters Date Type Department Care Team Description 05/18/2024 9:00 AM EST Office Visit [facility] [address] [place] [address] [phone] [facility] Chronic bilateral low back pain with bilateral sciatica (Primary Dx); Dietary counseling; Exercise counseling; Class 3 severe obesity due to excess calories with serious comorbidity and body mass index (BMI) of 40.0 to 44.9 in adult ([facility]); Eczema of external ear, bilateral 05/18/2024 Travel 03/16/2024 2:30 PM EST Office Visit [facility] [address] [place] [address] Aydne, Karne, OD White without pressure of peripheral retina of right eye (Primary Dx); Meibomian gland disease, unspecified laterality; Age-related nuclear cataract of both eyes; Presbyopia 03/16/2024 Travel from Last 3 Months Immunizations Name Administration Dates Next Due Hep A, Adult 08/29/2015,05/03/2014 Hep B, adult 10/25/2016,06/08/2016,08/29/2015 Influenza injectable quadriv alent IIV4 with preservative 03/28/2017,12/28/2015 Influenza injectable quadriv alent preservative free 04/02/2018 TD (adult), 2 Lf tetanus tox oid, preservative free, adsorbed 07/28/2021 Tdap 10/03/2010 Family History Medical History Relation Name Comments Diabetes type II Father Heart attack Father Osteoporosis Mother Colon cancer Neg Hx Prostate cancer Neg Hx Relation Name Status Comments Father Mother Social History Tobacco Use Types Packs/Day Years Used Date Smoking Tobacco: Never Smokeless Tobacco: Never Tobacco Cessation:Counseling Given: Not Answered Alcohol Use Standard Drinks/Week Comments Never 0 (1 standard drink = 0.6 oz pur e alcohol) Alcohol Answer Date Recorded Frequency of Alcohol Consumption Not on file 06/05/2023 Average Number of Drinks Not on file 024 Frequency of Binge Drinking Not on file 05/10 Score 0 06/05/2023 Depression Answer Date Recorded Patient Health Questionnaire-9 Score 0 05/18/2024 Patient Health Questionnaire-9 Score 0 05/18/2024 Last PHQ-9: Questionnaire Data Not on file 0 05/18/2024 Housing Stability Answer Date Recorded What is your housing situation today? I have ananth pearce 01/08/[address] you li ve. Do you have problems with any of the following? None of the above 01/08/2024 Food Insecurity Answer Date Recorded Within the past 12 months, y ou worried that your food would run out before you got money to buy more: Never True 01/08/2024 Within the past 12 months,th e food you bought just didn't last and you didn't have enough money to get more: Never True 05/2023 Transportation Answer Date Recorded In the past 12 months, has l ack of transportation kept you from medical appts, meetings, work or from getting things needed for daily living? No 01/08/2024 Utilities Answer Date Recorded In the past 12 months, has t he electric, gas, oil or water company threatened to shut off services in your home? No 01/08/2024 Depression Answer Date Recorded Patient Health Questionnaire-2 Score 0 05/18/2024 Internet Access Answer Date Recorded Internet Access Q1 Yes 01/08/2024 Internet Access Q2 Not on file 01/08/2024 Sex and Gender Information Value Date Recorded Sex Assigned at Male 02/05/2022 10:16 AM EDT Legal Sex Male 10:16 AM EDT Gender Identity Male 02/05/2022 10:16 AM EDT Sexual Orientation Straight 02/05/2022 10 :16 AM EDT Last Filed Vital Signs Vital Sign Reading Time Taken Comments Blood Pressure 129/86 05/18/2024 8:52 AM EST Pulse 100 05/18/2024 8:52 AM EST Temperature 36.4 ??C (97.5 ??F) 05/18/2024 8:52 AM ES T Respiratory Rate 20 05/18/2024 8:52 AM EST Oxygen Saturation 98% 05/18/2024 8:52 AM EST Inhaled Oxygen Concentration - - Weight 140 kg (308 lb 3.2 oz) 05/18/2024 8:52 AM EST Height 185.4 cm (6' 1 ) 05/18/2024 8:52 AM EST Body Mass Index 40.66 05/18/2024 8:52 AM EST Plan of Treatment Health Maintenance Due Date Last Done Comments Dental Oral Exam 1979 Dental Prophylaxis 1979 Dental X-Ray: Full Mouth 1979 Family Planning (PISQ) 08/30/1994 Dental X-Ray: Bitewings 09/02/2023 2022, 08/29 COVID-19 Vaccine (1 - 2024-25 season) 2023 Influenza Vaccine (#1) 2023 8, 03/28/2017, 12/28/2015 Alcohol/Substance Use Screening 06/05/2024 06/05/2023 SDOH Screening 01/07/2025 01/08/2024 Depression Screening 05/18/2025 05/18/2024, 05/18/19 Tobacco Screening 05/18/2025 05/18/2024 Lipid Panel 01/07/2029 01/08/2024, 01/07, 07/10/2022, Additional history exists Zoster Vaccines (1 of 2) 08/30/2029 DTaP/Tdap/Td Vaccines (3 - Td or Tdap) 07/29/2031 07/28/2021, 10/03/2010 RSV Patients and Patients Aged 60 years or older (1 - 1-dose 75+ series) 08/30/2054 Hepatitis A Vaccines Aged Out 08/29/2015, 05/03/19 15 No longer eligible based on patient's age to complete this topic Hepatitis B Vaccines Completed 10/25/2016, 06/08/2016, 08/29/2015 HIV Screening Completed 07/10/2022, 07/08, 12/11/2019 Hepatitis C Screening Completed 07/10/2022 , 08/02/2021, 12/11/2019 HIB Vaccines Aged Out No longer eligi ble based on patient's age to complete this topic HPV Vaccines Aged Out No longer eligi ble based on patient's age to complete this topic IPV Vaccines Aged Out No longer eligi ble based on patient's age to complete this topic Meningococcal Vaccine Aged Out No reed jorge eligible based on patient's age to complete this topic Pneumococcal Vaccine: Pediatrics (0 to 5 Years) and At-Risk Patients (6 to 49) Years) Aged Out No longer eligible based on patient's age to complete this topic RSV under 20 months Aged Out No longe r eligible based on patient's age to complete this topic Rotavirus Vaccines Aged Out No longer eligible based on patient's age to complete this topic Procedures Procedure Name Priority Date/Time Associated Diagnosis Comments LIPID PANEL, STANDARD Routine 01/08/2024 3:00 PM EDT Class 2 severe obesity due to excess calories with serious comorbidity and body mass index (BMI) of 39.0 to 39.9 in adult (CMS/HCC) BITEWINGS - 2 RADIOGRAPHIC IMAGES Routine 2022 3:00 PM EDT Need for full coverage dental crown HEPATITIS C AB W/REFL TO HCV RNA, QN, PCR Routine 07/10/2022 11:04 AM EDT Healthcare maintenance HIV 1/2 ANTIGEN/ANTIBODY, FOURTH GENERATION W/RFL Routine 07/10/2022 11:04 AM EDT Healthcare maintenance from Last 3 Months or Most Recently Relevant to Health Maintenance Results * (ABNORMAL) Lipid Panel, Standard (01/08/2024 3:00 PM EDT) Triglycerides 83 <150 mg/dL [facility] Comment:Desirable Triglyceri de: less than 150 mg/dLBorderline High Triglyceride 150-199 mg/dLHigh Triglyceride: 200-499 mg/dLVery High Triglyceride: greater than or equal to 5OO mg/dL Cholesterol 192 <200 mg/dL [facility] Comment:Desirable Cholestero l: less than 200 mg/dLBorderline High Cholesterol: 200-239 mg/dLHigh Cholesterol: greater than 239 mg/dL LDL Cholesterol Calculated 134(H) <100 mg/dL [facility] Comment:Desirable LDL: less than 100 mg/dLNear Optimal/Above Optimal LDL: 110- 129 mg/dLBorderline High LDL: 130-159 mg/dLHigh LDL: 160-189 mg/dLVery High LDL: greater than or equal to 190 mg/dL HDL Cholesterol 42 >40 mg/dL [facility] Comment:Desirable HDL: great er than 40 mg/dL Note: This HDL assay may give artificially low results in patients with liver disease. Blood Venous blood specimen / Unknown 01/08/2024 3:00 PM EDT 01/08/2024 3:59 PM EDT [facility] LAB BLOOD ORDERABLES Final Re sult [facility] [address] [place] [address] [phone] * Hepatitis C Antibody with Reflex to HCV, RNA, Quantitative, Real-Time PCR (07/10/2022 11:04 AM EDT) Hepatitis C Antibody NON-REACT IRINA NON-REACT IRINA [facility] Index 0.08 <1.00 [facility] Comment: HCV antibody was non-reactive. There is no laboratory evidence of HCV infection. In most cases, no further action is required. However, if recent HCV exposure is suspected, a test for HCV RNA (test code 51900) is suggested. For additional information please refer to http://education.Next Performance/faq/VAO45w8 (This link is being provided for informational/ educational purposes only.) Blood Venous blood specimen / Unknown 07/10/2022 11:04 AM EDT 07/10/2022 11:04 AM EDT Narrative [facility] - 07/11/2022 9:17 PM EDT FASTING:YES FASTING: YES [facility] LAB BLOOD ORDERABLES Final Re sult [facility] [address], [place] [address] [facility] [address] [place] [address] * HIV-1/2 Antigen and Antibodies, Fourth Generation, with Reflexes (07/10/2022 11:04 AM EDT) HIV Antigen/Antibody, 4th Generation NON-REAC TIVE NON-REAC TIVE [facility] Comment: HIV-1 antigen and HIV-1/HIV-2 antibodies were not detected. There is no laboratory evidence of HIV infection. PLEASE NOTE: This information has been disclosed to you from records whose confidentiality may be protected by state law. ??If your state requires such protection, then the state law prohibits you from making any further disclosure of the information without the specific written consent of the person to whom it pertains, or as otherwise permitted by law. A general authorization for the release of medical or other information is NOT sufficient for this purpose. ?? For additional information please refer to http://education.Next Performance/faq/IHP454 (This link is being provided for informational/ educational purposes only.) The performance of this assay has not been clinically validated in patients less than 2 years old. Blood Venous blood specimen / Unknown 07/10/2022 11:04 AM EDT 07/10/2022 11:04 AM EDT Narrative [facility] - 07/11/2022 9:17 PM EDT FASTING:YES FASTING: YES [facility] BLOOD ORDERABLES Final Re sult [facility] [address], [place] [address] [facility] [address] [place] [address] from Last 3 Months or Most Recently Relevant to Health Maintenance Insurance [facility] STANDARD Care Teams Jazz Singer Relationship Specialty Start Date End Date [place] Lali [facility] [address] [place] [phone] PCP - General Family Medicine 06/12/22
--- OUTSIDE RECORDS SUMMARY | 2024-05-18 10:18 | XMS_ITS | Encounter Summary ---
Author Organization [employer] Address [address] [facility] 7t [place] [address] Care Team Providers Care Revenue Stamp Cutter Name Role Phone [place] [facility] Primary Care Provider [phone] Encounter Details Date Type Department Care Team (Latest Contact Info) Description 05/18/2024 Travel Social History Tobacco Use Types Packs/Day Years [...] AM EDT documented as of this encounter Plan of Treatment Not on file documented as of this encounter Visit Diagnoses Not on filedocumented in this encounter Additional Health Concerns Assessment Noted Time PHQ-9 Depression Total Score: 0 05/18/19 25 8:57 AM EST documented as of this encounter Care Teams Revenue Stamp Cutter Relationship Specialty Start Date End Date Lali Richardson FNP [address] [place] [id number] PCP - General Family Medicine 06/12/22 documented as of this encounter
--- OUTSIDE RECORDS SUMMARY | 2024-05-18 10:18 | XMS_ITS | Encounter Summary ---
Author Organization [facility] Address [address] [place] [address] [address] [place] [address] Care Team Providers Care Mammal Control Agent Name Role Phone Clara Hernandez MD Primary Care Provider [facility] Primary Care Provider [phone] Encounter Details Date Type Department Care Team (Latest Contact Info) Description 08/13/[address] [facility] Dental, Provider, DDS Social History Tobacco Use Types Packs/Day Years Used Date Smoking Tobacco: Never Assessed Sex and Gender Information Value Date Recorded Sex Assigned at Male 02/05/2022 10:16 AM EDT Legal Sex Male 10:16 AM EDT Gender Identity Male 02/05/2022 10:16 AM EDT Sexual Orientation Straight 02/05/2022 10 :16 AM EDT documented as of this encounter Plan of Treatment Not on file documented as of this encounter Visit Diagnoses Not on filedocumented in this encounter Care Teams Mammal Control Agent Relationship Specialty Start Date End Date Clara Hernandez MD PCP - General Family Medicine 01/04/20 06/11/22 [facility] [address] [place] [address] PCP - General Family Medicine 06/12/22 documented as of this encounter
--- OUTSIDE RECORDS SUMMARY | 2024-05-18 10:18 | XMS_ITS | Clinical Summary ---
Author Organization [facility] Address [address] [place] [address] Care Team Providers Care Nanotechnology Engineering Technologist Name Role Phone Unavailable Primary Care Provider Unavailabl e Social History Tobacco Use Types Packs/Day Years Used Date Smoking Tobacco: Never Assessed Sex and Gender Information Value Date Recorded Sex Assigned at Not on file Legal Sex Male 1:00 AM EST Gender Identity Not on file Sexual Orientation Not on file Plan of Treatment Health Maintenance Due Date Last Done Comments DTaP,Tdap,and Td Vaccines (1 - Tdap) 08/30/1986 Hepatitis B Vaccines (1 of 3 - 19+ 3-dose series) 08/30/1998 COVID-19 Vaccine (2023-2 5 season) 2023 Influenza Vaccine (#1) 2023 HIB Vaccines Aged Out No longer eligi ble based on patient's age to complete this topic HPV Vaccines Aged Out No longer eligi ble based on patient's age to complete this topic Hepatitis A Vaccines Aged Out No long er eligible based on patient's age to complete this topic IPV Vaccines Aged Out No longer eligi ble based on patient's age to complete this topic MMR Vaccines Aged Out No longer eligi ble based on patient's age to complete this topic Meningococcal ACWY Vaccine Aged Out N o longer eligible based on patient's age to complete this topic Meningococcal B Vacine Aged Out No lo nger eligible based on patient's age to complete this topic Pneumococcal Vaccine: Pediat rics (0 to 5 Years) and At-Risk Patients (6 to 64 Years) Aged Out No longer eligible b ased on patient's age to complete this topic RSV Immunization Patients Un harley 20 months Aged Out No longer eligible b ased on patient's age to complete this topic Varicella Vaccines Aged Out No longer eligible based on patient's age to complete this topic
--- OUTSIDE RECORDS SUMMARY | 2024-05-18 10:18 | XMS_ITS | Encounter Summary ---
Author Organization [employer] [facility] Address [address] [place] [address] 7 [place] [address] Care Team Providers Care Grey Tender Name Role Phone Lali Richardson Primary Care Provider Reason for Referral * Consultation (Routine) - Pending Review Specialty Diagnoses / Procedures Referred By Crow guadarrama Referred To Contact Physical Therapy Diagnoses Chronic bilateral low back pain with bilateral sciatica Lali Richardson FNP [address] [place] [address] Phone: tel: fax: Referral ID Status Reason Start Date Expiration Date Visits Requested Visits Authorized [id number] Pending Review Specialty Services Required 05/18/2024 05/18/2025 1 1 * Consultation (Routine) - Pending Review Specialty Diagnoses / Procedures Referred By Crow guadarrama Referred To Contact Obesity Medicine Diagnoses Class 3 severe obesity due to excess calories with serious comorbidity and body mass index (BMI) of 40.0 to 44.9 in adult (CMS/HCC) Lali Richardson FNP [address] [place] [address] Phone: tel: fax: Referral ID Status Reason Start Date Expiration Date Visits Requested Visits Authorized [id number] Pending Review Specialty Services Required 05/18/2024 05/18/2025 1 1 Reason for Visit * Reason Comments Follow-up Back pain Encounter Details Date Type Department Care Team (Late st Contact Info) Description 05/18/2024 9:00 AM EST Office Visit [facility] [address] [place] [address] Dylan, Lali, HEAD OF CYTOGENETICS [address] [place] [address] Chronic bilateral low back pain with bilateral sciatica (Primary Dx); Dietary counseling; Exercise counseling; Class 3 severe obesity due to excess calories with serious comorbidity and body mass index (BMI) of 40.0 to 44.9 in adult (CMS/HCC); Eczema of external ear, bilateral Social History Tobacco Use Types Packs/Day Years [...] AM EDT documented as of this encounter Last Filed Vital Signs Vital Sign Reading [...] Mass Index 40.66 05/18/2024 8:52 AM EST documented in this encounter Plan of Treatment Scheduled Orders Name Type Priority Associated Diagnoses Orde r Schedule Vitamin D, 25-Hydroxy, Total, Immunoassay Lab Routine Class 3 severe obesity due to excess calories with serious comorbidity and body mass index (BMI) of 40.0 to 44.9 in adult ([facility]) Expected: 05/18/2024 (Approximate), Expires: 05/18/2025 Vitamin B12/Folate, Serum Panel Lab Routine Class 3 severe obesity due to excess calories with serious comorbidity and body mass index (BMI) of 40.0 to 44.9 in adult ([facility]) Expected: 05/18/2024, Expires: 05/18/2025 Scheduled Referrals Name Type Priority Associated Diagnoses Orde r Schedule Referral to Weight Management Outpatient Referral Routine Class 3 severe obesity due to excess calories with serious comorbidity and body mass index (BMI) of 40.0 to 44.9 in adult ([facility]) Expected: 05/18/2024 (Approximate), Expires: 05/18/2025 Referral to Physical Therapy Outpatient Referral Routine Chronic bilateral low back pain with bilateral sciatica Expected: 05/18/2024 (Approximate), Expires: 05/18/2025 documented as of this encounter Visit Diagnoses Diagnosis Chronic bilateral low back pain with bilateral sciatica- Primary Dietary counseling Dietary surveillance and counseling Exercise counseling Class 3 severe obesity due to excess calories with serious comorbidity and body mass index (BMI) of 40.0 to 44.9 in adult ([facility]) Eczema of external ear, bilateral documented in this encounter Additional Health Concerns Assessment Noted Time PHQ-9 Depression Total Score: 0 05/18/19 25 8:57 AM EST documented as of this encounter Care Teams Grey Tender Relationship Specialty Start Date End Date Lali Richardson FNP [address] [place] [phone] PCP - General Family Medicine 06/12/22 documented as of this encounter
--- OUTSIDE RECORDS SUMMARY | 2024-05-18 10:18 | XMS_ITS | Encounter Summary ---
Author Organization [employer] [facility] Address [address] [place] [address] [address] [place] [address] Care Team Providers Care Tie Fastener Name Role Phone Lali Richardson [facility] Primary Care Provider [phone] Encounter Details Date Type Department Care Team (Late st Contact Info) Description 06/12/2022 Telephone [facility] [address] [place], [place] [phone] Lali Richardson FNP [address] [place] [address] Social History Tobacco Use Types Packs/Day Years [...] on filedocumented in this encounter Care Teams Tie Fastener Relationship Specialty Start Date End Date Lali Richardson FNP [address] [place] [address] PCP - General Family Medicine 06/12/22 documented as of this encounter
[2024-05-18 11:47] LABS: Vitamin D 25-OH Total 22.1 ng/mL (>30)
[2024-05-18 11:59] LABS: Folate 5.6 ng/mL (> or = 4.0); Vitamin B12 240 pg/mL (200-900)
== END 2024-05-18 09:36 | disposition home or self-care (01) ==
LOC: HO.HHCL 09:35
PROVIDERS: Visit Provider Registered Nurse
DX: E66.01 Morbid (severe) obesity due to excess calories (principal); Z68.41 Body mass index [BMI] 40.0-44.9, adult
CPT/HCPCS: 36415; 82306; 82607; 82746